=== PATIENT | female | born 1995 | race Caucasian/White ===

== ENCOUNTER 2017-03-29 11:55 | Inpatient (IN) ==
[2017-04-01] MEDS ORDERED: METHYLERGONOVINE 0.2 MG/ML INJECTION IM PRN (06:16)
[2017-04-01] MEDS ORDERED: ACETAMINOPHEN 500 MG TABLET PO PRN ×2 (06:16→19:28)
[2017-04-01] MEDS ORDERED: MAG-AL + SIM ORAL LIQUID 30ml PO PRN ×2 (06:16→19:28)
[2017-04-01] MEDS ORDERED: LIDOCAINE 1% (10mg/ml) 2mL INJ PF SDV ID PRN (06:16)
[2017-04-01] MEDS ORDERED: CARBOPROST 250 MCG/ML INJECTION IM PRN (06:16)
[2017-04-01] MEDS ORDERED: ROPIVACAINE 1% 10MG/ML INJ 200 MG, SUFentanil 50 MCG in NS 80 ML EPI PRN (06:34)
[2017-04-01] MEDS ORDERED: AMPICILLIN 2 GM in NS 100 ML IV ONE (07:00)
[2017-04-01] MEDS: D5LR 1,000 ML IV PRN ×2 (07:20→16:59)
[2017-04-01] MEDS ORDERED: D5LR 1,000 ML IV PRN (07:23)
[2017-04-01] MEDS ORDERED: OXYTOCIN DRIP 30 UNIT/500 ML ML IV PRN (07:23)
[2017-04-01 07:32] VITALS: BMI 39.8
--- NOTE | 2017-04-01 09:32 | Anesthesia Preoperative Report ---
Anesthesia Epidural/Spinal Rec - Date and Time Date: 04/01/17 Preoperative Diagnosis: induction Procedure: Labor Epidural Plan: Epidural - Vital Signs Vital Signs: Temperature 98.4 F 04/01/17 06:54 Pulse Rate 95 04/01/17 06:54 Respiratory Rate 16 04/01/17 06:54 Blood Pressure 120/76 04/01/17 06:54 Pulse Oximetry 98 04/01/17 06:54 Oxygen Delivery Method Room Air /Para: P:1 - Medictaions & Allergies Inpatient Medications: Current Medications Acetaminophen (Tylenol) 500 - 1,000 mg PO Q4H PRN PRN Reason: Pain Al Hydroxide/Mg Hydroxide (Maalox Plus) 30 ml PO Q3H PRN PRN Reason: Indigestion Calcium Carbonate (Tums) 500 - 1,000 mg PO Q2H PRN PRN Reason: Indigestion Carboprost Tromethamine (Hemabate) 250 mcg IM O PRN PRN Reason: .Downtime Ampicillin Sodium 1 gm/ Sodium (Chloride) 100 mls @ 200 mls/hr IV Q4H [place] Dextrose/Lactated Ringer's (Dextrose 5%-Lactated Ringers) 1,000 mls @ 125 mls/ hr IV .Q8H PRN PRN Reason: Labor Last Admin: 04/01/17 07:20 Dose: 125 mls/hr Dextrose/Lactated Ringer's (Dextrose 5%-Lactated Ringers) 1,000 mls @ 125 mls/ hr IV .Q8H PRN PRN Reason: Labor Oxytocin (Pitocin Drip) 30 unit in 500 mls @ 2 mls/hr IV .Q24H PRN; Protocol PRN Reason: Induction/Augmentation Last Admin: 04/01/17 07:15 Dose: 2 mls/hr Lidocaine HCl (Xylocaine-Mpf 1% Vial) 0.2 mg ID O PRN PRN Reason: IV Start Methylergonovine Maleate (Methergine) 0.2 mg IM O PRN Misoprostol (Cytotec) 800 mcg MT ONCE PRN Allergies/Adverse Reactions: Allergies Allergy/AdvReac Type Severity Reaction Status Date / Time No Known Allergies Allergy Unverified 08/20/14 16:40 - Home Medications Home Medications: Home Medications Medication Instructions Recorded Confirmed Type Docosahexanoic Acid [ Dha] 1 cap PO DAILY #0 cap 08/20/14 History - Surgical History Anesthesia Reactions: None Hx Family Anesthesia Reaction: No History of Motion Sickness: No - Social History Second Hand Exposure: No Substance Use Type: does not use Alcohol Intake Frequency: does not drink Hx Chewing Tobacco Use: No - Pertinent Findings Lab Data: CBC and BMP 04/01/17 06:37 EKG Rhythm: Normal Sinus Rhythm - Physical Exam Respiratory Exam: lungs clear Cardiovascular Exam: regular rate and rhythm, no murmur - Airway Assessment Mallampati Score: III TMD: 3 Fingerbreadths Neck Extension: good Overall Assessment: may be difficult mask vent, may be difficult intubation - ASA ASA Score: 2 - Discussion Discussion: Discussed risks/options/alternatives of anesthesia and questions answered. Patient consents. Nursing pain assessment noted. Anesthesia Discussion: spouse Attestation Statement: Prior to the delivery of any anesthetic medication, I examined the patient, developed the plan, obtained the patient's consent and discussed the risk and benefits of the procedure with the patient/guardian.
[2017-04-01] MEDS: CALCIUM CARBONATE Chewable 500mg TABLET PO PRN ×2 (10:04→17:33)
[2017-04-01] MEDS: AMPICILLIN 1 GM in NS 100 ML IV SCH ×2 (12:51→16:57)
[2017-04-01] MEDS ORDERED: SALINE FLUSH 10ml SYRINGE IVF PRN (19:28)
[2017-04-01] MEDS ORDERED: HYDROCORTISONE 2.5% CREAM 30gm RECTALLY PRN (19:28)
[2017-04-01] MEDS ORDERED: CALCIUM CARBONATE Chewable 500mg TABLET PO PRN (19:28)
[2017-04-01] MEDS ORDERED: DiphenhydrAMINE 25 MG CAPSULE PO PRN (19:28)
[2017-04-01] MEDS ORDERED: HYDROCODONE/APAP 5mg/325mg TABLET PO PRN (19:28)
[2017-04-01] MEDS ORDERED: BENZOCAINE 20% SPRAY 0.5 ML MM ONE (19:28)
[2017-04-01] MEDS: OXYTOCIN DRIP 30 UNIT/500 ML ML IV SCH (20:00)
[2017-04-01] MEDS: IBUPROFEN 800 MG TABLET PO PRN (22:28)
[2017-04-02] MEDS: OXYTOCIN DRIP 30 UNIT/500 ML ML IV SCH ×2 (04:44→07:54)
[2017-04-02] MEDS: AMPICILLIN 1 GM in NS 100 ML IV SCH (06:19)
--- NOTE | 2017-04-02 07:03 | Labor and Delivery Note ---
DATE OF DELIVERY: 04/01/2017 DIAGNOSES: 1. 21-year-old white female, G2, P1, at 40.3 weeks gestational age. 2. Pitocin induction for postdates gestation. 3. Marginal cord insertion. 4. Epidural anesthesia. 5. Artificial rupture of membranes. 6. IUPM.. 7. GBS prophylaxis. 8. Spontaneous vaginal delivery. 9. Right labial laceration - repaired. 10. Female infant, Apgars, 3610 g (8 pounds), (January). This is a patient of mine that is 3 days postdates and a G2, P1, so we brought her in for induction today. Initially her cervix was fingertip. We made it to 20 Pitocin and then I did AROM at 10:24 a.m. She made it to 2.5 cm and then kind of stalled there, so I put an IUPM in and Pitocin reached a maximum of 28 milliunits a minute. Then we were able to start titrating down. Ultimately the baby was asynclitic, but we reached complete dilation and pushed for a very short period of time. Infant was bulb suctioned after delivery of the head and then again after delivery of the body. Cord was doubly clamped and cut after draining for about a [id number] and the 's father cut the cord. The was initially placed on mother's abdomen. The placenta delivered spontaneously and was intact, but it took quite some time. I didn't apply much pressure because it was a marginal cord insertion. Perineum had a right labial laceration that was repaired using 3-0 chromic in a running nonlocking fashion. EBL was 20. Patient received GBS prophylaxis throughout labor. Blood type is A+ and rubella is immune. At time of dictation mother and are doing well. [facility]
[2017-04-02] MEDS: DOCUSATE CALCIUM 240 MG CAPSULE PO SCH ×2 (07:54→09:23)
--- NOTE | 2017-04-02 08:51 | Anesthesia Postoperative Note ---
- Date and Time Date: 04/02/17 Time: 08:50 - Status Patient Participated in Evaluation: Patient Participated in Person Vital Signs: Temperature 98.2 F 04/02/17 04:40 Pulse Rate 91 04/02/17 04:40 Respiratory Rate 18 04/02/17 04:40 Blood Pressure 128/67 04/02/17 04:40 Pulse Oximetry 97 04/02/17 04:40 Oxygen Delivery Method Room Air Respiratory Function: Airway Patent, Regular Respirations Cardiovascular Function: Regular Pulse Mental Status: Alert and Oriented Pain Intensity: 0 Hydration: Taking PO Fluids Complications During Recover: None Apparent Post Anesthesia Care Notes: Patient is ambulatory without problem. Does state has headache of and on since yesterday. No visual problem or n/v. - Follow-Up Instructions Instructions: Per Surgeon
[2017-04-02] MEDS: IBUPROFEN 800 MG TABLET PO PRN ×2 (09:22→21:15)
--- NOTE | 2017-04-02 10:04 | OB/GYN Progress Note ---
OB-Progress Note Free Text - Date Date: 04/02/17 - Progress Note Progress Note: vss af no c/o disc usually pp mari dai-denise
[2017-04-03] MEDS: DOCUSATE CALCIUM 240 MG CAPSULE PO SCH (11:25)
--- NOTE | 2017-04-03 12:04 | OB/GYN Progress Note ---
OB-PP Progress Note - General PPD2 Maternal Group B Strep: Positive Maternal blood type: A+ Maternal Rubella Status: Immune - Subjective Date: 04/03/17 Lochia: Minimal Pain: contolled Voiding: voiding - Objective Vital Signs: Last Vital Signs Temp 97.6 F 04/03/17 03:40 Pulse 79 04/03/17 03:40 Resp 16 04/03/17 03:40 BP 117/60 04/03/17 03:40 Pulse Ox 98 04/03/17 03:40 General: alert and oriented Abdomen: fundus firm, non-tender Extremities: non-tender - Assessment Assessment: , Anemia, GBS positive - Plan Plan: routine care, discharge home, continue PNV
--- NOTE | 2017-04-03 12:07 | Discharge Instructions ---
Discharge Plan - Med Rec/Dispo Prescriptions: New Hydrocodone/APAP 5/325 [[place] 5/325] 1 - 2 tab PO Q4H PRN #20 tab PRN Reason: Pain Ibuprofen [Motrin] 800 mg PO Q8H PRN #30 tab PRN Reason: Pain Continue Docosahexanoic Acid [ Dha] 1 cap PO DAILY #0 cap Discharge Instructions/Outpatient Orders: Final Provider Discharge Instructions Location: Determined By Patient - Disposition 01 Discharged Home, Self-Care
[2017-04-03] MEDS: IBUPROFEN 800 MG TABLET PO PRN (14:09)
[2017-04-03 14:56] VITALS: TEMP 98.4; O2SAT 99
[2017-04-03 17:07] VITALS: BP 139/79; PULSE 94; RESP 18
== END 2017-04-03 18:25 | disposition home or self-care (01) | DRG 775 ==
LOC: MC 04-01 06:07
PROVIDERS: ADMIT Obstetrics & Gynecology; ATTEND Obstetrics & Gynecology